=== PATIENT | female | born 1970 | race Caucasian/White ===

== ENCOUNTER 2018-04-13 09:04 | Outpatient (CLI) | payer OTHER | END 2018-04-13 10:29 | disposition home or self-care (01) | LOC: MRI 09:04 | DX: N93.8 Other specified abnormal uterine and vaginal bleeding (principal); D64.89 Other specified anemias | CPT/HCPCS: 72197 ==

== ENCOUNTER → 2025-03-07 | Emergency (ER) | payer OTHER ==
[~2025-03-07] VITALS: Ht 160 cm; Wt 81.0 kg
[~2025-03-07] MED LIST: ACETAMINOPHEN 500 MG GEL..CAP PO ONE; AMLODIPINE-OLM1 EAC2 PO; ENDOMETRIN100 MG BUCAL; KETOROLAC TROMETHAMINE 60 MG VIAL IM ONE; METFORMIN HCL500 M3 PO
== END | disposition home or self-care (01) ==
LOC: ER 08:03
DX: G89.11 Acute pain due to trauma (principal); R07.89 Other chest pain; I10 Essential (primary) hypertension; Z88.9 Allergy status to unspecified drugs, medicaments and biological substances; M54.59 Other low back pain